=== PATIENT | male | born 1980 | race Caucasian/White ===

== ENCOUNTER → 2016-09-11 | Day surgery (SDC) | payer OTHER ==
[~2016-09-11] MED LIST: ACETAMINOPHEN/HYDROcodone 325 MG/5 MG TAB PO PRN; BUPIVACAINE/EPINEPHRINE 0.25% PF 10 ML VIAL ONE; KETOROLAC TROMETHAMINE 30 MG/ML (IVP) VIAL IV PUSH ONE; KETOROLAC TROMETHAMINE 30 MG/ML (IVP) VIAL IVP ONE; LACTATED RINGER'S 1000 ML INJ 1,000 ML ONE; MIDAZOLAM HCL 2 MG/2 ML VIAL ONE; MORPHINE SULFATE 4 MG/ML INJ IV PUSH PRN; ONDANSETRON HCL 4 MG/2 ML VIAL IV PRN; ONDANSETRON HCL 4 MG/2 ML VIAL IV PUSH ONE; PROPOFOL 200 MG/20 ML AMP IV ONE; SODIUM CHLORIDE 0.9% FLUSH 10 ML FLUSH IV FLUSH PRN; SODIUM CHLORIDE 0.9% FLUSH 10 ML FLUSH IV FLUSH SCH; ceFAZolin INJ 1,000 MG VIAL ONE
--- NOTE | 2016-09-11 09:06 | PD.OP ---
cc: Johnny Lemon Jr., MD Operative Report Date of Surgery: September 11, 2016 Preoperative Diagnosis: right knee possible medial meniscal tear Postoperative Diagnosis: same Procedure: right knee arthroscopy partial medial menistectomy and removal of loose body Anesthesia: gen Surgeon: Johnny Lemon Practicing Md Anesthesiologist(s): staff Resident Surgeon: none Operation and Findings: PROCEDURE DETAILS: The patient was taken to the operating room. Monitored anesthesia care was induced. The extremity was sterilely prepped and draped. Examination under anesthesia was normal. Arthroscope was introduced into the parapatellar working portal. The suprapatella pouch was found to have no structural abnormalities. The medial and lateral gutters were within normal limits without any loose bodies. The patellofemoral articulation tracked well. A moderate amount of outerbridge grade 2-3 degeneration was seen and this was gently shaved to the best surface possible. The notch was examined and the anterior cruciate and posterior cruciate ligaments were normal. The medial compartment was inspected and hyaline cartilage surface where in poor condition with diffuse areas of grade 3-4 degeneration with kissing lesion at the femoral condyle. A complex anterior horn meniscal tear was identified and this was debrided back to a smooth stable rim with the up-biting punch and the shaver. There was almost complete absence of the remainder of the medial meniscus at the lateral and posterior horn from his previous menistectomy. There underlying articular cartillage showed significant degeneration with areas of denuded subchondral bone. No other significant problems were identified. The notch view reveal a loose body which was removed. 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 The lateral meniscus was carefully probed and it was normal. The popliteus was intact. No incarcerated fragment were identified. The wounds were copiously irrigated and closed with nylon. A sterile dressing was applied. The patient tolerated procedure very well. There were no complications. Johnny Lemon Jr., MD September 11, 2016 09:06 incarcerated fragment were identified. The wounds were copiously irrigated and closed with nylon. A sterile dressing was applied. The patient tolerated procedure very well. There were no complications. Johnny Lemon Jr., MD September 11, 2016 09:06
== END | disposition home or self-care (01) ==
LOC: ESDC 06:43
PROVIDERS: ATTEND Orthopaedic Surgery
DX: S83.231A Complex tear of medial meniscus, current injury, right knee, initial encounter (principal); E11.9 Type 2 diabetes mellitus without complications; Z79.4 Long term (current) use of insulin
CPT/HCPCS: 01400; 29881; 82948; J0690; J2250; J2405; J3010; J7120; J1885